=== PATIENT | male | born 1975 | race African-American/Black ===

== ENCOUNTER 2024-10-03 16:28 | Emergency (ER) | payer MEDICAID ==
[~2024-10-03] VITALS: Ht 188 cm; Wt 80.0 kg
[2024-10-03 16:44] VITALS: O2SAT 99
[2024-10-03] MEDS ORDERED: TOPUD MT (18:41)
[2024-10-03] MEDS: ACETAMINOPHEN 500MG TABLET PO ONE (19:44)
[2024-10-03 19:45] VITALS: BP 117/68; PULSE 70; RESP 19; TEMP 36.72516; O2SAT 100
== END 2024-10-03 19:47 | disposition home or self-care (01) ==
LOC: ER 16:28
DX: M79.10 Myalgia, unspecified site (principal); V49.49XA Driver injured in collision with other motor vehicles in traffic accident, initial encounter; Y93.89 Activity, other specified; Y92.89 Other specified places as the place of occurrence of the external cause; Y99.8 Other external cause status
CPT/HCPCS: 99282